=== PATIENT | female | born 1985 | race Caucasian/White ===

== ENCOUNTER 2023-09-12 18:51 | Emergency (ER) | payer OTHER ==
[~2023-09-12] VITALS: Ht 157.5 cm; Wt 131.5 kg
[2023-09-12 19:40] VITALS: BP_SYST 157; PULSE 100; RESP 18; TEMP 97.6; O2SAT 100
[2023-09-12] MEDS ORDERED: ONDANSETRON 4 MG ODT TAB PO ONE (21:30)
[2023-09-12 21:54] LABS: BASOPHILS # (AUTO) 0.1 K/uL (0.0-0.2); BASOPHILS % (AUTO) 0.6 % (0.0-2.0); EOSINOPHILS % (AUTO) 0.2 % (0.0-4.0); HEMOGLOBIN 13.3 g/dL (12.0-16.0); LYMPHOCYTES % (AUTO) 13.8 % (20.5-51.5); MEAN CORPUSCULAR HEMOGLOBIN 28 pg (27-31); MEAN CORPUSCULAR HGB CONC 33 % (32-36); MEAN CORPUSCULAR VOLUME 85 fL (79.0-98.0); MONOCYTES # (AUTO) 0.6 K/uL (0.0-1.0); MONOCYTES % (AUTO) 3.9 % (1.7-9.3); NEUTROPHILS # (AUTO) 11.7 K/uL (1.8-7.7); NEUTROPHILS % (AUTO) 81.5 % (40.0-70.0); PLATELET COUNT (AUTO) 509 K/uL (130-430); RED BLOOD CELL COUNT(AUTO) 4.68 MIL/uL (4.2-6.2); RED CELL DISTRIBUTION WIDTH 12.9 % (9.0-15.0); WHITE BLOOD COUNT (AUTO) 14.3 K/uL (4.8-10.8)
[2023-09-12 22:10] LABS: CALCIUM 9.4 mg/dL (8.4-11.0); CREATININE 0.74 mg/dL (0.55-1.30)
[2023-09-12 22:15] LABS: ALBUMIN 3.5 g/dL (3.4-4.8); TOTAL BILIRUBIN 0.8 mg/dL (0.0-1.0); TOTAL PROTEIN, SERUM 8.3 g/dL (6.4-8.3)
[2023-09-12] MEDS ORDERED: ONDA-8 TL (23:34)
[2023-09-12] MEDS ORDERED: SUCR1TAB2 PO (23:34)
[2023-09-12] MEDS ORDERED: PRO40 PO (23:34)
[2023-09-12 23:41] VITALS: BP_SYST 162; PULSE 98; RESP 18; TEMP 97.6; O2SAT 100
[2023-09-12 23:54] LABS: BILIRUBIN,URINE NEGATIVE (NEGATIVE); CLARITY/URINE SL CLOUDY (CLEAR); COLOR,URINE YELLOW (YELLOW); GLUCOSE,URINE NEGATIVE (NEGATIVE); KETONES,URINE 1+ (NEGATIVE); LEUKOCYTE ESTERASE ,URINE NEGATIVE (NEGATIVE); NITRITE, URINE NEGATIVE (NEGATIVE); PH,URINE 6.5 (5.0-8.0); PROTEIN URINE NEGATIVE (NEGATIVE); UROBILINOGEN,URINE 0.2 (0.2-1.0)
[2023-09-13 00:12] LABS: BLOOD, URINE TRACE (NEGATIVE)
[2023-09-13 00:16] LABS: BACTERIA,URINE RARE /HPF (None Seen); WBC,URINE 0-3 /HPF (0-3)
== END 2023-09-12 23:41 | disposition home or self-care (01) ==
LOC: SED 18:51
DX: K92.0 Hematemesis (principal); R51.9 Headache, unspecified; Z79.899 Other long term (current) drug therapy
CPT/HCPCS: 99284; 80053; 81001; 83690; 85025; 36415; 74018; 81025; 81000; 81015; Q0162